=== PATIENT | female | born 1975 | race Caucasian/White ===

== ENCOUNTER 2020-05-09 08:52 | Emergency (ER) | payer OTHER, SELFPAY ==
[2020-05-09 08:58] VITALS: BP 181/97; PULSE 100; RESP 14; TEMP 36.8; O2SAT 100
--- NOTE | 2020-05-09 09:17 | ED.GENADULT ---
HPI - General Adult General Chief complaint: Blood/Body fluid exposure Stated complaint: needle stick two days ago Time Seen by Provider: 05/09/20 08:58 Source: family Mode of arrival: Ambulatory Limitations: no limitations History of Present Illness HPI narrative: Otherwise healthy 44-year-old female here for evaluation approximately 36 hours after she sustained a needlestick to her left index finger. 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 She states that yesterday after giving a flu immunization to a teenage female she sustained a needlestick to her left index finger. Was a 25 gauge needle. Was a used needle. Patient is up-to-date on tetanus. She has had the hepatitis-B vaccine. She states that she told her boss yesterday when she was unable to come to the emergency department until today due to family issues. The source patient has been contacted by the clinic and per the patient's report is going to be ?tested today ? Related Data Previous Rx's Medication Instructions Recorded emtricitabine-tenofovir (TDF) 1 tab PO DAILY #30 tab 05/09/20 [Truvada] raltegravir 400 mg PO BID #60 tab 05/09/20 Allergies Allergy/AdvReac Type Severity Reaction Status Date / Time No Known Drug Allergies Allergy Verified 05/09/20 09:00 Review of Systems Musculoskeletal Musculoskeletal: Denies tingling Comments: No finger pain Integumentary/Breasts Comments: No bleeding from needlestick site Neurologic Neurologic: Denies tingling Hematologic/Lymphatic Hematologic/Lymphatic: Denies easy bleeding and Denies easy bruising Patient History Medical History Healthy adult (Acute) Social History Smoking Status: Never smoker Smoking Status: Never smoker alcohol intake frequency: 0-2 drinks per day Substance Use Type: does not use Exam Initial Vital Signs Initial Vital Signs: Vital Signs Temperature 98.2 F 05/09/20 08:58 Pulse Rate 100 H 05/09/20 08:58 Respiratory Rate 14 05/09/20 08:58 Blood Pressure 181/97 H 05/09/20 08:58 Pulse Oximetry 100 05/09/20 08:58 Const General: cooperative and comfortable Skin Lesions: no lesions Rashes: no rashes Extrem General: normal to inspection Psych Appearance: grossly normal and well kempt Course Orders Ordered: ED Orders 05/09/20 10:00 Alanine Aminotransferase Stat HIV 1 & 2 Ab/Ag 4th Gen Combo Stat Hep C Virus Ab w/Reflex Quant Stat Vital Signs Vital signs: Vital Signs - 8 hr 05/09/20 08:58 Temperature 98.2 F Pulse Rate 100 H Respiratory Rate 14 Blood Pressure 181/97 H Pulse Oximetry 100 Medical Decision Making Lab Data Lab results reviewed: Yes I reviewed the patient's lab results. Labs: Lab Results 05/09/20 05/09/20 Range/Units 10:00 10:00 ALT 18 (<35) IU/L Hepatitis C Antibody Negative (NEGATIVE) s/c HIV 1&2 Ab/P24 Ag 4thGn Negative (NEGATIVE) MDM Narrative Medical decision making narrative: Patient's injury occurred approximately 36 hours ago. She is in the medical field. She states she is up-to-date on her tetanus. She has also had the hepatitis B vaccinations. Labs were drawn today per protocol. Patient was discharged prior to the return of the hepatitis C and HIV. I called the patient on the phone number that she provided at [phone]. I left a message at this number letting her know that the results were negative. She stated that I could leave a message at that number. We had a long discussion regarding post exposure HIV prophylaxis. We did discuss the risks and benefits of this to include how low risk for injury was and also the potential side effects to the medication. We also discussed that starting the medication as soon as possible is the best an area. After this discussion the patient stated that she would like to have a prescription for the medicines. She was going to hold on filling the prescription until her results returned. [place] Patient was informed that she need to follow-up with her primary provider. She expressed understanding and agreement. Discharge Plan Departure Patient Disposition: Home Clinical Impression: Needlestick injury of finger Discharge Date/Time: 05/09/20 10:42 Instructions: DI for Accidental Exposure to Body Fluids Activity Restrictions/Additional Instructions: You will receive a call from me before 1800 hours with results of some of her blood test. There are some that are send outs from this labs and will take a couple days to results. Make sure you follow-up with your primary provider. Take the medications as directed. Return to the emergency department for any new or worsening symptoms. Prescriptions: New raltegravir 400 mg tablet 400 mg PO BID Qty: 60 RF: 0 Truvada 200-300 mg tablet 1 tab PO DAILY Qty: 30 RF: 0 Referrals: Gilma Cordero MD [Primary Care Provider] -
[2020-05-09 10:26] LABS: Alanine Aminotransferase 18 IU/L (<35)
[2020-05-09 17:07] LABS: HIV 1 & 2 Ab/Ag 4th Gen Combo NEGATIVE (NEGATIVE); Hep C Virus Ab w/Reflex Quant NEGATIVE s/c (NEGATIVE)
[2020-05-10 06:36] LABS: Hepatitis B Surf Ab Qualitativ Non Reactive (.)
== END 2020-05-09 10:42 | disposition home or self-care (01) ==
PROVIDERS: Emergency Provider Emergency Medicine; PCP Family Medicine
DX: Z77.21 Contact with and (suspected) exposure to potentially hazardous body fluids (principal); W26.8XXA Contact with other sharp object(s), not elsewhere classified, initial encounter; Y99.0 Civilian activity done for income or pay
CPT/HCPCS: 36415; 84460; 86706; 86803; 87389; 99283

== ENCOUNTER → 2020-11-20 19:01 | Outpatient (ROUT) | payer SELFPAY ==
[2020-11-22 09:32] LABS: Rubeola Measles IgG > 300.0 AU/mL (Immune >16.4)
[2020-11-25 00:08] LABS: QuantiFERON Mitogen Value >10.00 IU/mL (.); QuantiFERON Nil Value <0.00 IU/mL (.); QuantiFERON TB Gold Plus Negative (Negative); QuantiFERON TB1 Ag Value 0.02 IU/mL (.); QuantiFERON TB2 Ag Value <0.00 IU/mL (.)
== END ==
DX: Z02.1 Encounter for pre-employment examination (principal)
CPT/HCPCS: 86480; 86735; 86762; 86765

== ENCOUNTER → 2021-01-08 10:21 | Outpatient (CLI) | payer OTHER, SELFPAY ==
[2021-01-08 20:13] LABS: Add Manual Diff / Slide Review NO; Basophils Absolute Auto 100 /uL (0-100); Eosinophils Absolute Auto 400 /uL (0-450); Eosinophils Percent Auto 6.8 % (2-4); Hematocrit 42.2 % (36-46); Hemoglobin 13.8 g/dL (12.0-16.0); Lymphocytes Absolute Auto 1400 /uL (1100-4500); Lymphocytes Percent Auto 25.8 % (25-40); Mean Corpuscular HGB Conc 32.7 % (30-36); Mean Corpuscular Volume 88.7 fL (80-100); Monocytes Absolute Auto 300 /uL (0-900); Monocytes Percent Auto 5.9 % (3-14); Neutrophils Absolute Auto 3200 /uL (1500-7000); Neutrophils Percent Auto 59.5 % (50-75); Platelet Count 192 X10^3/uL (150-400); Red Blood Cell Count 4.76 X10^6/uL (4.0-5.2); Red Cell Distribution Width 14.3 % (11.6-14.8); White Blood Cell Count 5.3 X10^3/uL (4.5-11.0)
[2021-01-08 20:20] LABS: Alanine Aminotransferase 15 IU/L (<35); Albumin 4.2 g/dL (3.5-5.0); Albumin Globulin Ratio 1.3 (1.0-2.8); Alkaline Phosphatase 48 U/L (38-126); Aspartate Aminotransferase 28 IU/L (14-36); BUN Creatinine Ratio 14.3 (6-22); Bilirubin Total 0.4 mg/dL (0.2-1.3); Blood Urea Nitrogen 10 mg/dL (7-17); Carbon Dioxide 28 mmol/L (22-32); Chloride 103 mmol/L (98-107); Estimated Glomerular Filt Rate > 60.0 mL/min (>60); Globulin 3.2 g/dL (1.7-4.1); Glucose 91 mg/dL (70-100); HEMOLYSIS < 15 (0-50); Potassium 4.6 mmol/L (3.4-5.1); Sodium 137 mmol/L (137-145); Total Protein 7.4 g/dL (6.3-8.2)
[2021-01-08 20:37] LABS: Total Iron Binding Capacity 376 ug/dL (265-497)
[2021-01-08 20:52] LABS: Ferritin 10 ng/mL (6-137)
== END ==
PROVIDERS: Visit Provider Family Medicine
DX: D53.9 Nutritional anemia, unspecified (principal)
CPT/HCPCS: 80053; 82728; 83550; 85025

== ENCOUNTER → 2021-03-18 12:01 | Outpatient (CLI) | payer OTHER, SELFPAY ==
[2021-03-18 19:26] LABS: Add Manual Diff / Slide Review NO; Basophils Absolute Auto 100 /uL (0-100); Basophils Percent Auto 1.8 % (0-2); Eosinophils Absolute Auto 500 /uL (0-450); Eosinophils Percent Auto 7.5 % (2-4); Hematocrit 43.1 % (36-46); Hemoglobin 14.3 g/dL (12.0-16.0); Lymphocytes Absolute Auto 1900 /uL (1100-4500); Lymphocytes Percent Auto 27.9 % (25-40); Mean Corpuscular HGB Conc 33.2 % (30-36); Mean Corpuscular Hemoglobin 29.7 PG (26-34); Mean Corpuscular Volume 89.4 fL (80-100); Monocytes Absolute Auto 500 /uL (0-900); Monocytes Percent Auto 6.9 % (3-14); Neutrophils Absolute Auto 3700 /uL (1500-7000); Neutrophils Percent Auto 55.9 % (50-75); Platelet Count 179 X10^3/uL (150-400); Red Blood Cell Count 4.81 X10^6/uL (4.0-5.2); Red Cell Distribution Width 13.2 % (11.6-14.8); White Blood Cell Count 6.7 X10^3/uL (4.5-11.0)
[2021-03-18 19:40] LABS: Iron 113 ug/dL (37-170)
[2021-03-18 20:00] LABS: Free T4, Direct Thyroxine 1.04 ng/dL (0.78-2.19)
[2021-03-18 20:15] LABS: Ferritin 8 ng/mL (6-137); Thyroid Stimulating Hormone 1.66 uIU/mL (0.47-4.68)
== END ==
PROVIDERS: PCP Family Medicine; Visit Provider Obstetrics & Gynecology
DX: N93.9 Abnormal uterine and vaginal bleeding, unspecified (principal); D53.9 Nutritional anemia, unspecified
CPT/HCPCS: 82728; 83540; 84439; 84443; 85025

== ENCOUNTER → 2023-01-19 09:09 | Outpatient (CLI) | payer OTHER, SELFPAY ==
--- NOTE | 2023-01-19 09:11 | DI.US.S_ITS ---
PROCEDURE: US PELVIC COMPLETE INDICATIONS: INTRAUTERINE DEVICE PLACEMENT. HEAVY LONG MENSES WITH PAIN. TECHNIQUE: Real-time scanning was performed of the pelvic organs, with image documentation. Additional endovaginal scanning was necessary due to incomplete visualization of the adnexal and endometrial structures by transabdominal scanning. COMPARISON: None. FINDINGS: Uterus: 8.4 x 6.7 x 5.6 cm. Endometrium is within normal limits, measuring 4 mm. IUD is in the endometrium. Echotexture is homogeneous. Anteverted positioning. Cervix is within normal limits. Uterus is borderline enlarged, mildly globular. Ovaries: Right ovary measures 12 cc. Left ovary measures 6 cc. Possible right corpus luteum versus hemorrhagic cyst. Color and spectral flows are seen. Other: No pathologic free fluid. IMPRESSION: IUD in appropriate position. No acute sonographic pelvic abnormality. Mildly globular and possible uterine enlargement. If there is concern for adenomyosis in the setting of abnormal menses, consider MRI to further evaluate. Dictated by: Luís Alicea M.D. on 01/19/2023 at 12:36 Approved by: Luís Alicea M.D. on 01/19/2023 at 12:40
== END ==
PROVIDERS: PCP Family Medicine; Referring Provider Obstetrics & Gynecology; Visit Provider Obstetrics & Gynecology
DX: N92.0 Excessive and frequent menstruation with regular cycle (principal); N94.6 Dysmenorrhea, unspecified; Z97.5 Presence of (intrauterine) contraceptive device
CPT/HCPCS: 76830; 76856; 93975